=== PATIENT | female | born 1980 | race Caucasian/White ===

== ENCOUNTER 2016-08-28 17:56 | Emergency (ER) | payer MEDICAID ==
[2016-08-28 18:18] VITALS: RESP 18; TEMP 98.1
[2016-08-28] MEDS ORDERED: Tetanus/Diphtheria Toxoids 0.5 ml Syringe IM ONE (19:26)
[2016-08-28] MEDS ORDERED: Lidocaine 2% w Epi 1:100,000 Inj IJ ONE (19:35)
--- NOTE | 2016-08-28 20:03 | C.PDOC ---
History Of Present Illness Patient is a 36 year old female who presents to the ER with a complaint of a puncture wound to her right left thigh. Patient states she was punctured with a wooden splinter and still has a piece of wood stuck inside. Patient has no other complaints. Time Seen by Provider: 08/28/16 19:20 Chief Complaint (Nursing): Abnormal Skin Integrity History Per: Patient History/Exam Limitations: no limitations Onset/Duration Of Symptoms: Hrs Current Symptoms Are (Timing): Still Present Location Of Injury: Left: Leg (right side thigh) Past Medical History Reviewed: Historical Data, Nursing Documentation, Vital Signs Vital Signs: Last Vital Signs Temp 98.1 F 08/28/16 18:13 Pulse 75 08/28/16 20:21 Resp 18 08/28/16 20:21 BP 110/65 08/28/16 20:21 Pulse Ox 96 08/28/16 22:32 - Medical History PMH: Anxiety Surgical History: Family History: States: Unknown Family Hx - Social History Hx Tobacco Use: No Hx Alcohol Use: No Hx Substance Use: No - Immunization History Hx Tetanus Toxoid Vaccination: No Hx Influenza Vaccination: No Hx Pneumococcal Vaccination: No Review Of Systems Except As Marked, All Systems Reviewed And Found Negative. Constitutional: Negative for: Fever, Chills Skin: Positive for: Other (puncture wound left right thigh) Physical Exam - Physical Exam Appears: Well, Non-toxic Skin: Normal Color, Warm, Dry Head: Atraumatic, Normacephalic Eye(s): bilateral: Normal Inspection, PERRL Oral Mucosa: Moist Chest: Symmetrical Extremity: Normal ROM, No Deformity, No Swelling, Other (Palpable foreign body on left anterior thigh) Pulses: Left Dorsalis Pedis: Normal, Right Dorsalis Pedis: Normal Neurological/Psych: Oriented x3, Normal Speech, Normal Cognition Gait: Steady ED Course And Treatment O2 Sat by Pulse Oximetry: 96 (Room air) Pulse Ox Interpretation: Normal Progress Note: Tetanus administered since patient's tetanus not up to date. Laceration - Laceration Repair Right thigh puncture Wound Length (In cm): 1.5 Description Of Wound: Linear Anesthesia: Lidocaine 2%, With Epi Wound Examination: Foreign Material Removed Manually (after small incision and using forceps - ) Wound Debridement/Revision: Wound Margins Revised (incision repaired ) Wound Closure: Suture (x 3) Suture Technique And Material Used: Nylon (4.0) Wound Complexity: Simple Disposition Counseled Patient/Family Regarding: Diagnosis, Need For Followup - Disposition Referrals: Fernanda Duong MD [Medical Doctor] - Disposition: HOME/ ROUTINE Disposition Time: 20:05 Condition: STABLE Instructions: Soft Tissue Foreign Body (ED) Print Language: SRI LANKAN - Clinical Impression Clinical Impression: Splinter of thigh without major open wound - Scribe Statement The provider has reviewed the documentation as recorded by the Scribbrayan Copeland All medical record entries made by the Joanieibbrayan were at my direction and personally dictated by me. I have reviewed the chart and agree that the record accurately reflects my personal performance of the history, physical exam, medical decision making, and the department course for this patient. I have also personally directed, reviewed, and agree with the discharge instructions and disposition.
[2016-08-28 20:21] VITALS: BP 110/65; PULSE 75
[2016-08-28 22:06] VITALS: O2SAT 96
== END 2016-08-28 20:22 | disposition home or self-care (01) ==
LOC: C.ER 17:56
DX: S70.352A Superficial foreign body, left thigh, initial encounter (principal); W45.8XXA Other foreign body or object entering through skin, initial encounter; Y93.9 Activity, unspecified; Y92.9 Unspecified place or not applicable

== ENCOUNTER 2016-09-04 18:46 | Emergency (ER) | payer MEDICAID ==
[2016-09-04 19:00] VITALS: BMI 36.6
[2016-09-04 19:04] VITALS: BP 115/71; PULSE 92; RESP 18; TEMP 98.1; O2SAT 99
--- NOTE | 2016-09-04 19:37 | C.PDOC ---
History Of Present Illness 36 yo female come in for scheduled suture removal from Left thigh after laceration was repaired here in ED on 08/28/16. Pt reports, "healing well", denies nay active complaints. Pt denies fever, chills, wound pain, redness, draining or any other active complaints. Ambulate to ED for evaluation, not in any apparent distress. Time Seen by Provider: 09/04/16 18:54 Chief Complaint (Nursing): Suture/Staple Removal History Per: Patient Past Medical History Reviewed: Historical Data, Nursing Documentation, Vital Signs Vital Signs: Last Vital Signs Temp 98.1 F 09/04/16 19:00 Pulse 92 H 09/04/16 19:00 Resp 18 09/04/16 19:00 BP 115/71 09/04/16 19:00 Pulse Ox 99 09/04/16 19:00 - Medical History PMH: Anxiety Surgical History: Family History: States: Unknown Family Hx - Social History Hx Tobacco Use: No Hx Alcohol Use: No Hx Substance Use: No - Immunization History Hx Tetanus Toxoid Vaccination: Yes Hx Influenza Vaccination: No Hx Pneumococcal Vaccination: No Review Of Systems Except As Marked, All Systems Reviewed And Found Negative. Constitutional: Negative for: Fever, Chills Musculoskeletal: Negative for: Leg Pain Skin: Positive for: Lesions Neurological: Negative for: Weakness, Numbness Physical Exam - Physical Exam Appears: Well, Non-toxic, No Acute Distress Skin: Normal Color, Warm, Other (well heaing laceration to anterior aspect Left distal femur closed with sutures #3. NO edema, no erythema, no wound draining.) Neurological/Psych: Oriented x3, Normal Speech ED Course And Treatment O2 Sat by Pulse Oximetry: 99 Progress Note: LLE: laceration cleaned, sutures removed#3 without difficulty. No cellulitis, no wound draining. FAROM, no neurovascular deficits. Pt advised on wound care. ref. to /[facility] PMD as need. Disposition Counseled Patient/Family Regarding: Diagnosis, Need For Followup - Disposition Disposition: HOME/ ROUTINE Disposition Time: 19:02 Condition: STABLE Additional Instructions: Follow up with PMD as need for further evaluation and treatment. Instructions: Stitches Removal (ED) - Clinical Impression Clinical Impression: Removal of suture
== END 2016-09-04 20:04 | disposition home or self-care (01) ==
LOC: C.ER 18:46 → SUPCPDRO 18:46 → C.ER 20:04
DX: Z48.02 Encounter for removal of sutures (principal)

== ENCOUNTER 2017-01-14 08:36 | Emergency (ER) | payer MEDICAID ==
[2017-01-14 08:37] VITALS: BMI 36.6
[2017-01-14] MEDS ORDERED: Apap-Butalbital-Caffeine 325-50-40mg Tab PO STA (09:03)
[2017-01-14] MEDS ORDERED: Apap-Butalbital-Caffeine 325-50-40mg Tab ONE (09:08)
--- NOTE | 2017-01-14 09:47 | C.PDOC ---
History Of Present Illness 36 y/o female presents to the ED complaining of right-sided headache associated with light sensitivity, nausea, and light headedness. PMHx includes migraines, and patient reports similar symptoms in the past. Took Ibuprofen without relief. PMD: Mima Jones Time Seen by Provider: 01/14/17 08:46 Chief Complaint (Nursing): Headache History Per: Patient History/Exam Limitations: no limitations Onset/Duration Of Symptoms: Days (since yesterday) Current Symptoms Are (Timing): Still Present Severity: Mild Past Medical History Reviewed: Historical Data, Nursing Documentation, Vital Signs Vital Signs: Last Vital Signs Temp 98.7 F 01/14/17 09:58 Pulse 76 01/14/17 09:58 Resp 16 01/14/17 09:58 BP 118/74 01/14/17 09:58 Pulse Ox 100 01/14/17 11:02 - Medical History PMH: Anxiety, Migraine Surgical History: Family History: States: No Known Family Hx - Social History Hx Tobacco Use: No Hx Alcohol Use: No Hx Substance Use: No - Immunization History Hx Tetanus Toxoid Vaccination: Yes Hx Influenza Vaccination: No Hx Pneumococcal Vaccination: Yes Review Of Systems Except As Marked, All Systems Reviewed And Found Negative. Eyes: Positive for: Other (Light sensitivity) Gastrointestinal: Positive for: Nausea. Negative for: Abdominal Pain Neurological: Positive for: Headache (right-sided), Other (light headed). Negative for: Weakness, Numbness, Confusion, Seizures Physical Exam - Physical Exam Appears: Well, Non-toxic, Other (in mild kris ) Skin: Normal Color, Warm, Dry, No Rash Head: Atraumatic, Normacephalic Eye(s): bilateral: Normal Inspection, PERRL, EOMI Oral Mucosa: Moist Neck: Normal, Normal ROM, Supple Chest: Symmetrical Cardiovascular: Rhythm Regular Respiratory: Normal Breath Sounds, No Rales, No Rhonchi, No Wheezing Gastrointestinal/Abdominal: Normal Exam, Bowel Sounds, Soft, No Tenderness Back: Normal Inspection Extremity: Bilateral: Atraumatic, Normal Color And Temperature, Normal ROM Neurological/Psych: Oriented x3, Normal Speech, Normal Cognition, Normal Cranial Nerves, No Cerebellar Signs, Normal Motor, Normal Sensation Gait: Steady (Ambulating normally in ED) ED Course And Treatment O2 Sat by Pulse Oximetry: 100 (RA) Pulse Ox Interpretation: Normal Progress Note: 08:48. Upreg ordered and reviewed - was (-). Patient given PO fiorecet. Reevaluation Time: 09:50 Reassessment Condition: Improved (On reassessment patient's headache has improved and she states she is feeling better. Rx given for Fiorecet, and patient instructed to follow up with PMD in 1-2 days. She understands she should return to ED if symptoms worsen.) Disposition Counseled Patient/Family Regarding: Diagnosis, Need For Followup, Rx Given - Disposition Referrals: Mima Jones MD [Non-Staff] - Disposition: HOME/ ROUTINE Disposition Time: 09:50 Condition: STABLE Additional Instructions: SEGUIMIENTO CON SORTO DOCTOR / CLNICA EN 1-2 VILLEGAS USE LOS MEDICAMENTOS QUE RADHA NECESARIOS DEVUELVA A LA JANIE DE EMERGENCIA SI LOS SNTOMAS EMPEORARAN Prescriptions: Acetaminophen/Butalbital/Caf [Fioricet] 1 tab PO TID PRN #20 tab PRN Reason: Headache Instructions: Migraine Headache (ED) Forms: [employer] (Togolese), Work Excuse Print Language: UGANDAN - Clinical Impression Clinical Impression: Migraine - Scribe Statement The provider has reviewed the documentation as recorded by the Scribe Ivy Warren All medical record entries made by the Scribe were at my direction and personally dictated by me. I have reviewed the chart and agree that the record accurately reflects my personal performance of the history, physical exam, medical decision making, and the department course for this patient. I have also personally directed, reviewed, and agree with the discharge instructions and disposition.
[2017-01-14 09:59] VITALS: BP 118/74; PULSE 76; RESP 16; TEMP 98.7
[2017-01-14 10:59] VITALS: O2SAT 100
== END 2017-01-14 09:59 | disposition home or self-care (01) ==
LOC: C.ER 08:36
DX: G43.909 Migraine, unspecified, not intractable, without status migrainosus (principal)

== ENCOUNTER 2018-09-22 16:42 | Emergency (ER) | payer MEDICAID, OTHER ==
[2018-09-22 16:42] VITALS: BMI 36.6
[2018-09-22 16:50] VITALS: BP 118/68; PULSE 92; RESP 18; TEMP 99.9; O2SAT 100
[2018-09-22 17:19] LABS: HCG,QUALITATIVE URINE NEGATIVE (NEGATIVE); SQUAMOUS EPITHIAL 1 /hpf (0-5); URINE BACTERIA FEW (<OCC); URINE BILIRUBIN NEGATIVE (NEGATIVE); URINE BLOOD NEGATIVE (NEGATIVE); URINE CLARITY Hazy (Clear); URINE COLOR Yellow (YELLOW); URINE GLUCOSE (UA) NORMAL (Normal); URINE LEUKOCYTE ESTERASE 3+ Leu/uL (Negative); URINE PROTEIN NEGATIVE (NEGATIVE); URINE UROBILINOGEN NORMAL mg/dL (0.2-1.0)
--- NOTE | 2018-09-22 17:35 | C.PDOC ---
History Of Present Illness 38 yo female come in for evaluation of suprapubic pain associated with pain on urination, urinary frequency, hesitancy gradually developed for past 2-3 days. Denies high fever, chills, headache, dizziness, abd. pain, V/D, hematuria, vaginal irritation or discharge. Denies hx of frequent UTI. Ambulatory, not in any apaprent distress. Time Seen by Provider: 09/22/18 16:51 Chief Complaint (Nursing): Female Genitourinary History Per: Patient Past Medical History Reviewed: Historical Data, Nursing Documentation, Vital Signs Vital Signs: Last Vital Signs Temp 99.9 F H 09/22/18 16:47 Pulse 92 H 09/22/18 16:47 Resp 18 09/22/18 16:47 BP 118/68 09/22/18 16:47 Pulse Ox 100 09/22/18 16:47 Primary Care Provider: FAMILY PROVIDER,NO - Medical History PMH: Anxiety, Migraine Surgical History: Family History: States: Unknown Family Hx - Social History Hx Tobacco Use: No Hx Alcohol Use: No Hx Substance Use: No - Immunization History Hx Tetanus Toxoid Vaccination: Yes Hx Influenza Vaccination: No Hx Pneumococcal Vaccination: Yes Review Of Systems Except As Marked, All Systems Reviewed And Found Negative. Constitutional: Negative for: Fever, Chills ENT: Negative for: Throat Pain Cardiovascular: Negative for: Chest Pain Respiratory: Negative for: Cough, Shortness of Breath Gastrointestinal: Negative for: Nausea, Vomiting, Abdominal Pain, Diarrhea Genitourinary: Positive for: Dysuria, Frequency. Negative for: Incontinence, Hematuria, Vaginal Discharge, Vaginal Bleeding Musculoskeletal: Negative for: Back Pain Skin: Negative for: Rash Neurological: Negative for: Altered Mental Status Physical Exam - Physical Exam Appears: Well, Non-toxic, No Acute Distress Skin: Normal Color, Warm, Dry Eye(s): bilateral: PERRL Oral Mucosa: Moist Gastrointestinal/Abdominal: Soft, Tenderness (mod spurapubic tenderness), No Distention, No Guarding, No Rebound Back: No CVA Tenderness Extremity: Normal ROM, No Pedal Edema, No Swelling Neurological/Psych: Oriented x3, Normal Speech ED Course And Treatment - Laboratory Results Lab Results: Urine Color Yellow (YELLOW) 09/22/18 17:05 Urine Clarity Hazy (Clear) 09/22/18 17:05 Urine pH 6.0 (5.0-8.0) 09/22/18 17:05 Ur Specific [place] 1.011 (1.003-1.030) 09/22/18 17:05 Urine Protein Negative mg/dL (NEGATIVE) 09/22/18 17:05 Urine Glucose (UA) Normal mg/dL (Normal) 09/22/18 17:05 Urine Ketones Negative mg/dL (NEGATIVE) 09/22/18 17:05 Urine Blood Negative (NEGATIVE) 09/22/18 17:05 Urine Nitrate Negative (NEGATIVE) 09/22/18 17:05 Urine Bilirubin Negative (NEGATIVE) 09/22/18 17:05 Urine Urobilinogen Normal mg/dL (0.2-1.0) 09/22/18 17:05 Ur Leukocyte Esterase 3+ Grant/uL (Negative) H 09/22/18 17:05 Urine WBC (Auto) 197 /hpf (0-5) H 09/22/18 17:05 Urine RBC (Auto) 5 /hpf (0-3) H 09/22/18 17:05 Ur Squamous Epith Cells 1 /hpf (0-5) 09/22/18 17:05 Urine Bacteria Few (<OCC) H 09/22/18 17:05 Urine HCG, Qual Negative (NEGATIVE) 09/22/18 17:05 Urine HCG, Qual Negative (NEGATIVE) 09/22/18 17:05 Urine POC: Negative O2 Sat by Pulse Oximetry: 100 Pulse Ox Interpretation: Normal Progress Note: On re-eval, pt radha febrile, hemodynamicaly stable. Non-toxic. ABd: benign, (-) guarding, (-) rebound. back: (-) CVA tenderness. UA review (+) UTI. preg (-). Pt has clinical findings c/w UTI. UCx- pending. WILl tx empirically with Cipro and F/U on cx results. Pt advised on course of ds. if any worsening or new changes- return to ED immediately for re-eavl. Pt is stable for discharge now. Disposition Counseled Patient/Family Regarding: Studies Performed, Diagnosis, Need For Followup, Rx Given - Disposition Disposition: HOME/ ROUTINE Disposition Time: 17:32 Condition: STABLE Additional Instructions: Encourage fluids Take medication as prescribed Follow up with PMD in 2-3 days for re-evaluation if no improvement in 2 days or any new changes, fever, chills- return to ED for re-evaluation Prescriptions: Ciprofloxacin [Cipro] 1 tab PO BID #14 tab Phenazopyridine [Phenazopyridine HCl] 200 mg PO Q12 #6 tab Instructions: Urinary Tract Infections in Adults Forms: [facility] (Occitan) - Clinical Impression Clinical Impression: UTI (urinary tract infection)
== END 2018-09-22 17:46 | disposition home or self-care (01) ==
LOC: C.ER 16:42
DX: N39.0 Urinary tract infection, site not specified (principal)